=== PATIENT | female | born 1975 | race Asian ===

== ENCOUNTER 2018-07-17 08:09 | Emergency (ER) | payer OTHER ==
[~2018-07-17] VITALS: Ht 157.5 cm; Wt 61.2 kg
[2018-07-17 08:09] VITALS: BP 126/76
[~2018-07-17 08:09] MED LIST: IBUP800T19 PO
--- NOTE | 2018-07-17 08:46 | RAD ---
HAND RIGHT 3V (PA, oblique, lateral) INDICATION: Fell x 1 day, right hand pain COMPARISON: None. FINDINGS: Tiny ossific density is adjacent to the fourth DIP best seen on the PA view. No other evidence of displaced fracture or malalignment. The joint spaces are maintained. Bony mineralization is normal for the patient's age. No significant soft tissue abnormality. No radiopaque foreign body. IMPRESSION: 1. Tiny ossific density seen adjacent to the fourth DIP. Correlate for point tenderness in the region as this could relate to a tiny age indeterminate avulsion fracture. No obvious step-off point seen. No soft tissue swelling. Alternatively, this could relate to degenerative changes. 2. No other evidence of displaced fracture or malalignment. Electronically signed by: Marko Srivastava MD (07/17/2018 8:44 AM) [facility]
--- NOTE | 2018-07-17 08:54 | PHYS DOC ---
Past History Past Medical History: No Pertinent History Past Surgical History: No Surgical History Smoking: Non-smoker Alcohol Use: None Drug Use: None Adult General Chief Complaint Chief Complaint: FINGER INJURY HPI HPI 42-year-old female presents with right middle finger pain. The patient was at the gym running holding to kettle bells in her hands when her toe caught the turf and she tripped. She started to fall she let go of the kettle bells out into the front of her so they would not land on her. As she went down, middle finger hit one of the bells. She is not exactly sure how it hit. Today she has significant swelling just proximal to the PIP joint. She is able to move the finger. Neurovascularly intact distal to the site. She denies any other injuries or complaints.] Review of Systems Review of Systems Constitutional: Denies fever or chills [] Eyes: Denies change in visual acuity, redness, or eye pain [] HENT: Denies nasal congestion or sore throat [] Respiratory: Denies cough or shortness of breath [] Cardiovascular: No additional information not addressed in HPI [] GI: Denies abdominal pain, nausea, vomiting, bloody stools or diarrhea [] : Denies dysuria or hematuria [] Musculoskeletal: Finger pain[] Integument: Denies rash or skin lesions [] Neurologic: Denies headache, focal weakness or sensory changes [] Endocrine: Denies polyuria or polydipsia [] All other systems were reviewed and found to be within normal limits, except as documented in this note. Allergies Allergies Allergies Coded Allergies Type Severity Reaction Last Updated Verified No Known Drug Allergies 12/10/13 No Physical Exam Physical Exam Constitutional: Well developed, well nourished, no acute distress, non-toxic appearance. [] HENT: Normocephalic, atraumatic, bilateral external ears normal, oropharynx moist, no oral exudates, nose normal. [] Eyes: PERRLA, EOMI, conjunctiva normal, no discharge. [] Neck: Normal range of motion, no tenderness, supple, no stridor. [] Cardiovascular:Heart rate regular rhythm, no murmur [] Lungs & Thorax: Bilateral breath sounds clear to auscultation [] Abdomen: Bowel sounds normal, soft, no tenderness, no masses, no pulsatile masses. [] Skin: Warm, dry, no erythema, no rash. [] Back: No tenderness, no CVA tenderness. [] Extremities: Tenderness and swelling of the right third digit at the PIP joint. No obvious deformity[] Neurologic: Alert and oriented X 3, normal motor function, normal sensory function, no focal deficits noted. [] Psychologic: Affect normal, judgement normal, mood normal. [] EKG EKG [] Radiology/Procedures Radiology/Procedures [] Impressions: HAND RIGHT 3V (PA, oblique, lateral) INDICATION: Fell x 1 day, right hand pain COMPARISON: None. FINDINGS: Tiny ossific density is adjacent to the fourth DIP best seen on the PA view. No other evidence of displaced fracture or malalignment. The joint spaces are maintained. Bony mineralization is normal for the patient's age. No significant soft tissue abnormality. No radiopaque foreign body. IMPRESSION: 1. Tiny ossific density seen adjacent to the fourth DIP. Correlate for point tenderness in the region as this could relate to a tiny age indeterminate avulsion fracture. No obvious step-off point seen. No soft tissue swelling. Alternatively, this could relate to degenerative changes. 2. No other evidence of displaced fracture or malalignment. Electronically signed by: Marko Krause MD (07/17/2018 8:44 AM) [facility] DICTATED AND SIGNED BY: MARKO KRAUSE MD DATE: 07/17/18843 CC: NIRAJ CHAWLA DO; GINO MURPHY ~ Course & Med Decision Making Course & Med Decision Making Pertinent Labs and Imaging studies reviewed. (See chart for details) The patient's finger is not fractured. I have advised supportive care. She is stable for discharge at this time. She may nadia tape for comfort. [] Dragon Disclaimer Dragon Disclaimer This electronic medical record was generated, in whole or in part, using a voice recognition dictation system. Departure Departure: Impression: Primary Impression: Finger contusion Referrals: GINO MURPHY (PCP) Patient Instructions: Hand Contusion, [id number] Problem Qualifiers Primary Impression: Finger contusion Encounter type: initial encounter Finger: middle finger Damage to nail status: without damage Laterality: right Qualified Codes: S60.031A - Contusion of right middle finger without damage to nail, initial encounter NIRAJ CHAWLA DO Jul 17, 2018 08:54
== END 2018-07-17 09:00 | disposition home or self-care (01) ==
LOC: ER 08:09
DX: S60.031A Contusion of right middle finger without damage to nail, initial encounter (principal); W01.198A Fall on same level from slipping, tripping and stumbling with subsequent striking against other object, initial encounter; Y93.02 Activity, running; Y92.89 Other specified places as the place of occurrence of the external cause; Y99.8 Other external cause status
CPT/HCPCS: 73130; 99283